=== PATIENT | male | born 1960 | race Caucasian/White ===

== ENCOUNTER 2017-11-26 09:56 | Observation (INO) | payer BC ==
[2017-11-26] MEDS ORDERED: ASPIRIN 81 MG PO STA (10:33)
[2017-11-26 10:56] LABS: Basophils # (A) 0.1 k/uL (0-0.2); Basophils % (A) 1 %; Eosinophils # (A) 0.2 k/uL (0-0.7); Eosinophils % (A) 2 %; HCT 43.9 % (39.0-53.0); HGB 15.3 gm/dL (13.0-17.5); Lymphocytes # (A) 1.5 k/uL (1.0-4.8); Lymphocytes % (A) 17 %; MCH 29.9 pg (25.0-35.0); MCV 85.5 fL (80.0-100.0); Mean Platelet Volume 8.1; Monocytes # (A) 0.6 k/uL (0-1.0); Monocytes % (A) 7 %; Neutrophils # (A) 6.4 k/uL (1.3-7.7); Neutrophils % (A) 71 %; Platelet Count 192 k/uL (150-450); RBC 5.13 m/uL (4.30-5.90); RDW 13.8 % (11.5-15.5)
[2017-11-26 10:58] LABS: Appearance,Urine Clear (Clear); Bilirubin,Urine Negative (Negative); Blood,Urine Negative (Negative); Color,Urine Yellow; Glucose,Urine (UA) Negative (Negative); Ketones,Urine Negative (Negative); Leukocyte Esterase,Urine Negative (Negative); Nitrite,Urine Negative (Negative); PH, Urine 5.5 (5.0-8.0); Protein,Urine Trace (Negative); Specific Gravity,Urine 1.013 (1.001-1.035); Urobilinogen,Urine <2.0 mg/dL (<2.0)
[2017-11-26 11:11] LABS: Albumin 4.2 g/dL (3.5-5.0); Calcium 9.7 mg/dL (8.4-10.2); Potassium 4.7 mmol/L (3.5-5.1); Total Bilirubin 0.4 mg/dL (0.2-1.3); Total Protein 7.3 g/dL (6.3-8.2)
--- NOTE | 2017-11-26 11:11 | XR ---
EXAMINATION TYPE: XR chest 2V DATE OF EXAM: 11/26/2017 COMPARISON: None HISTORY: 57-year-old male with chest pain and hypertension TECHNIQUE: PA and lateral views FINDINGS: Heart borderline to mildly enlarged. Mild elongation of the thoracic aorta. Diffuse interstitial prom inence and some peribronchial cuffing. Strandy atelectasis in the lower lungs. No consolidation or pl eural effusion. IMPRESSION: 1. Borderline to mild cardiomegaly. 2. Interstitial changes have a chronic appearance, possible bronchitis or chronic asthma. Correlate t o exclude mild pulmonary vascular congestion. No focal infiltrate.
[2017-11-26 11:17] LABS: Prothrombin Time 9.9 sec (9.0-12.0)
[2017-11-26] MEDS ORDERED: NALOXONE 0.4 MG/ML 1 ML VIAL IV PRN ×2 (11:46→16:52)
--- NOTE | 2017-11-26 11:46 | ED ---
General Adult HPI - General Chief complaint: Recheck/Abnormal Lab/Rx Stated complaint: Hypertension Time Seen by Provider: 11/26/17 10:24 Source: patient, EMS Mode of arrival: EMS - History of Present Illness Initial comments: Patient complains of tightness in the upper chest, jaw and face. His symptoms began a couple hours ago. He also noted his blood pressure was very high. He took no medication for the symptoms. He has no back pain. He has no shortness of breath, but felt diaphoretic and lightheaded. He did not black out. He has no belly pain. He has chronic swelling the legs which is unchanged from prior. He has no palpitations. He denies sick contacts or recent travel. - Related Data Home Medications Medication Instructions Recorded Confirmed Allopurinol [Zyloprim] 300 mg PO DAILY PRN 03/27/16 11/26/17 Cholecalciferol [Vitamin D3] 5,000 unit PO W/LUNCH 03/27/16 11/26/17 HYDROcodone/APAP 10-325MG [[place] 1 tab PO QAM 03/27/16 11/26/17 10-325] Indomethacin [Indocin ER] 75 mg PO DAILY 03/27/16 11/26/17 Multivitamin [Multivitamins Adult 1 tab PO W/LUNCH 03/27/16 11/26/17 Gummies] Nebivolol HCl [Bystolic] 10 mg PO HS 03/27/16 11/26/17 [place]-3 Fatty Acids/Fish Oil [Fish 1 cap PO W/LUNCH 03/27/16 11/26/17 Oil 1,000 mg Softgel] Tamsulosin [Flomax] 0.4 mg PO HS 11/26/17 11/26/17 Allergies Allergy/AdvReac Type Severity Reaction Status Date / Time Sulfa (Sulfonamide Allergy Rash/Hives Verified 11/26/17 10:18 Antibiotics) sulfamethoxazole Allergy Rash/Hives Verified 11/26/17 10:18 [From Bactrim] trimethoprim [From Bactrim] Allergy Rash/Hives Verified 11/26/17 10:18 Review of Systems ROS Statement: Those systems with pertinent positive or pertinent negative responses have been documented in the HPI. ROS Other: All systems not noted in ROS Statement are negative. Past Medical History Past Medical History: Hypertension, Osteoarthritis (OA), Skin Disorder Additional Past Medical History / Comment(s): hx. kidney stones, gout,psoriasis, knee problems History of Any Multi-Drug Resistant Organisms: None Reported Past Surgical History: No Surgical Hx Reported Additional Past Surgical History / Comment(s): hernia repair Additional Past Anesthesia/Blood Transfusion Reaction / Comment(s): never had anesthesia, no family problems Past Psychological History: No Psychological Hx Reported Smoking Status: Never smoker Past Alcohol Use History: Occasional Past Drug Use History: None Reported - Past Family History Mother Family Medical History: Cancer Brother(s) Family Medical History: Cancer General Exam General appearance: alert, in no apparent distress Head exam: Present: atraumatic, normocephalic, normal inspection Eye exam: Present: normal appearance, PERRL, EOMI. Absent: scleral icterus, conjunctival injection, periorbital swelling ENT exam: Present: normal exam, mucous membranes moist Neck exam: Present: normal inspection. Absent: tenderness, meningismus, lymphadenopathy Respiratory exam: Present: normal lung sounds bilaterally. Absent: respiratory distress, wheezes, rales, rhonchi, stridor Cardiovascular Exam: Present: regular rate, normal rhythm, normal heart sounds. Absent: systolic murmur, diastolic murmur, rubs, gallop, clicks GI/Abdominal exam: Present: soft, normal bowel sounds. Absent: distended, tenderness, guarding, rebound, rigid Extremities exam: Present: normal inspection, full ROM, normal capillary refill. Absent: tenderness, pedal edema, joint swelling, calf tenderness Back exam: Present: normal inspection Neurological exam: Present: alert, oriented X3, CN II-XII intact Psychiatric exam: Present: normal affect, normal mood Skin exam: Present: warm, dry, intact, normal color. Absent: rash Course Vital Signs 11/26/17 11/26/17 10:03 11:01 Temperature 98.5 F Pulse Rate 65 56 L Respiratory 16 18 Rate Blood Pressure 203/134 176/99 O2 Sat by Pulse 95 95 Oximetry EKG Findings - EKG Comments: EKG Findings:: Twelve-lead EKG shows ventricular rate 58 bpm, normal MO interval and QRS complexes, no ST elevation or depression, interpreted by me is sinus bradycardia. Medical Decision Making - Medical Decision Making Patient presents with tightness in the upper chest and jaw and neck. I'm concern for cardiac related problems. His laboratory studies are unremarkable. He was very hypertensive on arrival. Chest x-rays negative for pneumonia. Troponin is negative. I will place a consultation to cardiology. Patient will be admitted for observation. - Lab Data Result diagrams: 11/26/17 10:15 11/26/17 10:15 Lab Results 11/26/17 11/26/17 11/26/17 Range/Units 10:15 10:15 10:15 WBC 9.0 (3.8-10.6) k/uL RBC 5.13 (4.30-5.90) m/uL Hgb 15.3 (13.0-17.5) gm/dL Hct 43.9 (39.0-53.0) % MCV 85.5 (80.0-100.0) fL MCH 29.9 (25.0-35.0) pg MCHC 35.0 (31.0-37.0) g/dL RDW 13.8 (11.5-15.5) % Plt Count 192 (150-450) k/uL Neutrophils % 71 % Lymphocytes % 17 % Monocytes % 7 % Eosinophils % 2 % Basophils % 1 % Neutrophils # 6.4 (1.3-7.7) k/uL Lymphocytes # 1.5 (1.0-4.8) k/uL Monocytes # 0.6 (0-1.0) k/uL Eosinophils # 0.2 (0-0.7) k/uL Basophils # 0.1 (0-0.2) k/uL PT 9.9 (9.0-12.0) sec INR 1.0 (<1.2) APTT 24.0 (22.0-30.0) sec Sodium 143 (137-145) mmol/L Potassium 4.7 (3.5-5.1) mmol/L Chloride 105 (98-107) mmol/L Carbon Dioxide 23 (22-30) mmol/L Anion Gap 15 mmol/L BUN 17 (9-20) mg/dL Creatinine 1.10 (0.66-1.25) mg/dL Est GFR (CKD-EPI)AfAm 86 (>60 ml/min/1.73 sqM) Est GFR (CKD-EPI)NonAf 75 (>60 ml/min/1.73 sqM) Glucose 110 H (74-99) mg/dL Calcium 9.7 (8.4-10.2) mg/dL Magnesium 2.0 (1.6-2.3) mg/dL Total Bilirubin 0.4 (0.2-1.3) mg/dL AST 42 (17-59) U/L ALT 72 (21-72) U/L Alkaline Phosphatase 56 (38-126) U/L Troponin I (0.000-0.034) ng/mL NT-Pro-B Natriuret Pep pg/mL Total Protein 7.3 (6.3-8.2) g/dL Albumin 4.2 (3.5-5.0) g/dL Lipase 78 (23-300) U/L Urine Color Urine Appearance (Clear) Urine pH (5.0-8.0) Ur Specific [place] (1.001-1.035) Urine Protein (Negative) Urine Glucose (UA) (Negative) Urine Ketones (Negative) Urine Blood (Negative) Urine Nitrite (Negative) Urine Bilirubin (Negative) Urine Urobilinogen (<2.0) mg/dL Ur Leukocyte Esterase (Negative) 11/26/17 11/26/17 11/26/17 Range/Units 10:15 10:15 10:15 WBC (3.8-10.6) k/uL RBC (4.30-5.90) m/uL Hgb (13.0-17.5) gm/dL Hct (39.0-53.0) % MCV (80.0-100.0) fL MCH (25.0-35.0) pg MCHC (31.0-37.0) g/dL RDW (11.5-15.5) % Plt Count (150-450) k/uL Neutrophils % % Lymphocytes % % Monocytes % % Eosinophils % % Basophils % % Neutrophils # (1.3-7.7) k/uL Lymphocytes # (1.0-4.8) k/uL Monocytes # (0-1.0) k/uL Eosinophils # (0-0.7) k/uL Basophils # (0-0.2) k/uL PT (9.0-12.0) sec INR (<1.2) APTT (22.0-30.0) sec Sodium (137-145) mmol/L Potassium (3.5-5.1) mmol/L Chloride (98-107) mmol/L Carbon Dioxide (22-30) mmol/L Anion Gap mmol/L BUN (9-20) mg/dL Creatinine (0.66-1.25) mg/dL Est GFR (CKD-EPI)AfAm (>60 ml/min/1.73 sqM) Est GFR (CKD-EPI)NonAf (>60 ml/min/1.73 sqM) Glucose (74-99) mg/dL Calcium (8.4-10.2) mg/dL Magnesium (1.6-2.3) mg/dL Total Bilirubin (0.2-1.3) mg/dL AST (17-59) U/L ALT (21-72) U/L Alkaline Phosphatase (38-126) U/L Troponin I <0.012 (0.000-0.034) ng/mL NT-Pro-B Natriuret Pep 407 pg/mL Total Protein (6.3-8.2) g/dL Albumin (3.5-5.0) g/dL Lipase (23-300) U/L Urine Color Yellow Urine Appearance Clear (Clear) Urine pH 5.5 (5.0-8.0) Ur Specific [place] 1.013 (1.001-1.035) Urine Protein Trace H (Negative) Urine Glucose (UA) Negative (Negative) Urine Ketones Negative (Negative) Urine Blood Negative (Negative) Urine Nitrite Negative (Negative) Urine Bilirubin Negative (Negative) Urine Urobilinogen <2.0 (<2.0) mg/dL Ur Leukocyte Esterase Negative (Negative) Disposition Clinical Impression: Chest pain Disposition: ADMITTED IP TO THIS HOSP Condition: Fair Referrals: Alex Pierre MD [Primary Care Provider] - 1-2 days Time of Disposition: 11:46
[2017-11-26] MEDS ORDERED: ALLOPURINOL 300 MG TAB PO PRN (11:48)
--- NOTE | 2017-11-26 13:10 | ECHOF ---
Referral Reason:chest pain MEASUREMENTS -------- HEIGHT: 177.8 cm WEIGHT: 154.2 kg BP: IVSd: 1.1 cm (0.6 - 1.1) LVIDd: 5.4 cm (3.9 - 5.3) LVPWd: 1.4 cm (0.6 - 1.1) IVSs: 1.7 cm LVIDs: 3.8 cm LVPWs: 1.3 cm Ao Diam: 3.6 cm (2.0 - 3.7) AV Cusp: 2.5 cm (1.5 - 2.6) LA Diam: 4.5 cm (2.7 - 3.8) MV EXCURSION: 18.655 mm (> 18.000) MV EF SLOPE: 106 mm/s (70 - 150) EPSS: 1.3 cm MV E Leon: 0.73 m/s MV DecT: 244 ms MV A Leon: 0.42 m/s MV E/A Ratio: 1.76 RAP: 5.00 mmHg RVSP: 7.97 mmHg FINDINGS -------- Sinus rhythm. This was a technically difficult study with suboptimal views. The left ventricular size is normal. There is mild concentric left ventricular hypertrophy. Overa ll left ventricular systolic function is low-normal with, an EF between 50 - 55 %. The right ventricle is normal in size and function. The left atrium is mildly dilated. The right atrium is normal in size. Lumason used The aortic valve was not well visualized. The mitral valve was not well visualized. There is trace mitral regurgitation. The tricuspid valve was not well visualized. Trace tricuspid regurgitation present. The right darius tricular systolic pressure, as measured by Doppler, is 7.97mmHg. The pulmonic valve was not well visualized. The aortic root size is normal. The pericardium is normal. CONCLUSIONS -------- 1. Sinus rhythm. 2. This was a technically difficult study with suboptimal views. 3. The left ventricular size is normal. 4. There is mild concentric left ventricular hypertrophy. 5. Overall left ventricular systolic function is low-normal with, an EF between 50 - 55 %. 6. The right ventricle is normal in size and function. 7. The left atrium is mildly dilated. 8. The right atrium is normal in size. 9. Lumason used 10. The aortic valve was not well visualized. 11. The mitral valve was not well visualized. 12. There is trace mitral regurgitation. 13. The tricuspid valve was not well visualized. 14. Trace tricuspid regurgitation present. 15. The right ventricular systolic pressure, as measured by Doppler, is 7.97mmHg. 16. The pulmonic valve was not well visualized. 17. The aortic root size is normal. 18. The pericardium is normal. MOLD STACKER: Denisha Perez RDCS
[2017-11-26] MEDS ORDERED: NEBIVOLOL 5 MG TAB PO ONE (14:15)
[2017-11-26] MEDS ORDERED: MAGNESIUM HYDROXIDE 2,400 MG/10 ML CUP PO PRN (16:52)
[2017-11-26] MEDS ORDERED: MELATONIN 3 MG TABLET PO PRN (16:52)
[2017-11-26] MEDS ORDERED: ACETAMINOPHEN TAB 325 MG TAB PO PRN (16:52)
[2017-11-26] MEDS ORDERED: LORazepam 0.5 MG TAB PO PRN (16:52)
[2017-11-26] MEDS ORDERED: ONDANSETRON 4 MG/2 ML VIAL IVP PRN (16:52)
[2017-11-26] MEDS ORDERED: CALCIUM CARBONATE 500 MG CHEWABLE PO PRN (16:52)
[2017-11-26] MEDS ORDERED: LACTULOSE 20 GM/30 ML CUP PO PRN (16:52)
[2017-11-26] MEDS: LISINOPRIL-HCTZ 10-12.5 MG 1 EACH TAB PO SCH ×2 (17:16→19:53)
[2017-11-26] MEDS: FAMOTIDINE 20 MG TAB PO SCH (19:52)
[2017-11-26] MEDS ORDERED: NEBIVOLOL 5 MG TAB PO SCH (21:00)
[2017-11-26] MEDS ORDERED: TAMSULOSIN 0.4 MG CAP.ER.24H PO SCH (21:00)
--- NOTE | 2017-11-26 21:02 | HP ---
HISTORY AND PHYSICAL DATE OF ADMISSION: 11/26/2017 PRESENTING COMPLAINT: Not feeling well. HISTORY OF PRESENTING COMPLAINT: This is a pleasant 57-year-old patient of Dr. Pierre. Chronic stable medical conditions include osteoarthritis, psoriasis, obesity. The patient 2 days ago had an episode as described below, short-lived. This morning patient went to work and felt a little bit short of breath, flushed, broke out in a sweat. He continued to do his work. After an hour he started feeling much worse and went down to the office. From there he was taken to the local fire department, and they decided to transfer the patient to the hospital, as his blood pressure was running rather high. The patient felt a bit tired and rundown. The patient does have a positive family history of coronary artery disease with no prior cardiac history himself. Patient's blood pressure was running rather high when he first presented. REVIEW OF SYSTEMS: CONSTITUTIONAL: Tired. HEENT: None. RESPIRATORY: As above. CARDIOVASCULAR: As above. GASTROINTESTINAL: None. GENITOURINARY: None. MUSCULOSKELETAL: Arthritic pain in many joints, especially in the knees. DERMATOLOGICAL: Some chronic skin changes in lower extremities. HEMATOLOGICAL: None. LYMPHATICS: None. PSYCHIATRY: None. NEUROLOGICAL: None. PAST MEDICAL HISTORY: 1. Hypertension. 2. Osteoarthritis. 3. Varicose veins. 4. Psoriasis. 5. Basal cell skin cancer. PAST SURGICAL HISTORY: 1. Hernia repair. 2. Laparoscopic ventral hernia repair. 3. Ablation of the varicose veins. 4. Basal cell cancer removed. 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 . Does not smoke. Alcohol occasionally. FAMILY HISTORY: Father had heart disease starting in his 50s, including a bypass, and lymphoma. HOME MEDICATIONS: 1. Flomax 0.4 mg at bedtime. 2. Fish oil 1 capsule p.o. with lunch. 3. Nebivolol 10 mg at bedtime. 4. Multivitamin 1 tablet p.o. daily. 5. Indocin ER 25 mg daily. 6. [place] 10 one tablet daily. 7. Vitamin D3 5000 units p.o. with lunch. 8. Allopurinol 300 mg daily p.r.n. ALLERGIES: BACTRIM. PHYSICAL EXAMINATION: VITAL SIGNS ON PRESENTATION: Temperature 98.5, pulse 65, respiration 16, blood pressure 203/134, pulse ox 95% on 2 L. GENERAL APPEARANCE: Morbidly obese; BMI of 53.1. Sitting at the edge of bed, comfortable. EYES: Pupils equal. Conjunctivae normal. HEENT: External appearance of nose and ears normal. Oral cavity normal. NECK: JVD not raised. Mass not palpable. RESPIRATORY: Effort normal. LUNGS: Fair air entry. CARDIOVASCULAR: First and second sounds normal. No edema. ABDOMEN: Soft, nontender. Liver and spleen not palpable. LYMPHATIC: No lymph node palpable in neck or axillae. PSYCHIATRY: Alert and oriented x3. Mood and affect normal. DERMATOLOGICAL: Patient has evidence of psoriasis both on his elbows and the knees and there is also pigmentation in the lower extremity, probably from varicose veins. INVESTIGATIONS: White count 9, hemoglobin 15.3, potassium 4.7. Troponin x2 negative. EKG normal sinus rhythm. ASSESSMENT: 1. This is a 57-year-old patient whose cardiac risk factors include morbid obesity, hypertension, positive coronary artery disease. He presented with a cardiac- sounding presentation. Patient's troponins are negative. EKG is nonspecific. Probably he will need at least a stress test. 2. Essential hypertension with urgency. 3. Primary osteoarthritis, especially in the knees. 4. Psoriasis not otherwise specified. 5. Morbid obesity with body mass index of 53.1. PLAN: Patient is started on aspirin. Serial cardiac enzymes are done. Cardiology will be consulted with a view to probably a stress test. LEIDY inhibitors were added. Care was discussed with the patient. Will also have the patient see a dietitian for weight loss measures. MMODL / IJN: [id number] /
--- NOTE | 2017-11-26 22:32 | CONS ---
CONSULTATION This is a 57-year-old obese hypertensive patient who works for the [employer]. He has a diagnosis of hypertension, benign prostatic hypertrophy, has had some varicose vein surgery performed in the past. He is a reasonably active person, but yesterday while at work doing some heavy activity, he felt dizzy, lightheaded and just did not feel right. He specifically insists that he did not have any chest pain or discomfort. He went to the [facility], and there they took his blood pressure and found that it was elevated and suggested that he should come into the hospital. After arrival in the hospital, his blood pressure was initially elevated and he received Zestril in addition to his Bystolic that he was given already, and with that he has shown improvement. He has virtually no symptoms. His two sets of troponins are normal. He is resting comfortably without symptoms at the time of my evaluation. On arrival in the emergency room, his blood pressure was 200/120. It appears that this was a combination of accelerated hypertension and lightheadedness that brought him to the hospital. The patient is quite obese but also quite active. He is resting comfortably without symptoms at the time of my evaluation. He has virtually no discomfort. PAST MEDICAL HISTORY: 1. Hypertension. 2. Osteoarthritis. 3. Chronic lower extremity edema with stripping of veins. 4. History of kidney stones. 5. Psoriasis. 6. He has also had some hernia surgery in the past. MEDICATIONS AT HOME: 1. Indocin. 2. Bystolic 10 mg daily. 3. Flomax 0.4 mg daily. 4. Zyloprim. 5. Vitamin supplements. 6. Pain medications. ALLERGIES: SULFA. PHYSICAL EXAMINATION: His blood pressure now is down to 128/70, pulse rate 60 per minute, regular. HEENT: Unremarkable. Fundus was not examined by me. Neck is supple. There is no JVD. I do not hear a carotid bruit. Heart exam reveals S1, S2 heard normally. Distant heart sounds. No murmurs. Lungs are clear. Abdomen is soft, nontender. Lower extremities reveal bilateral venostasis pigmentation with trace edema, diminished pulses. Central nervous system is grossly within normal limits. IMPRESSION: 1. Accelerated hypertension with some lightheadedness, which has resolved. 2. Obesity. 3. History of bilateral lower extremity venous insufficiency. RECOMMENDATIONS: Patient's blood pressure control seems somewhat suboptimal. His heart rate is already low, so I will continue Bystolic, but I will add lisinopril 10 mg daily to his regimen. If he has no further symptoms, we can discharge him tomorrow with the understanding he should have an outpatient stress test performed. I discussed my thoughts in detail with the patient. Thank you very much for the consult. SAMANTHA / AIME: [id number] /
[2017-11-27 08:03] LABS: Mean Platelet Volume 7.7; Platelet Count 200 k/uL (150-450)
[2017-11-27] MEDS: FAMOTIDINE 20 MG TAB PO SCH (08:35)
[2017-11-27 08:36] LABS: Calcium 9.1 mg/dL (8.4-10.2)
[2017-11-27 08:37] LABS: Potassium 4.7 mmol/L (3.5-5.1)
[2017-11-27] MEDS ORDERED: HEPARIN SODIUM,PORCINE 5,000 UNIT/ML 1 ML VIAL SQ SCH (09:00)
[2017-11-27] MEDS ORDERED: INDOMETHACIN 75 MG PO SCH (09:00)
[2017-11-27] MEDS ORDERED: LISINOPRIL-HCTZ 10-12.5 MG 1 EACH TAB PO SCH (09:00)
[2017-11-27] MEDS ORDERED: ASPIRIN 81 MG PO SCH (09:00)
[2017-11-27] MEDS ORDERED: HYDROcodone/APAP 10-325MG 1 EACH TAB PO SCH (09:00)
[2017-11-27] MEDS ORDERED: NEBIVOLOL 5 MG TAB PO SCH (09:00)
[2017-11-27 09:41] VITALS: RESP 18
[2017-11-27 10:49] VITALS: BMI 53.1
[2017-11-27 11:58] VITALS: BP 163/91; PULSE 50; TEMP 97.7
--- NOTE | 2017-11-27 20:36 | PN ---
PROGRESS NOTE Mr. Laughlin is an obese gentleman with hypertension who came into the hospital yesterday with dizziness and lightheadedness. Accelerated hypertension has resolved. His blood pressure is under good control today. Blood pressure was 140/70. S1-S2 heard normally. Lungs are clear. Heart sounds heard distantly. Abdomen is soft, nontender. Lower extremities reveal pigmentation and bilateral mild edema. Central nervous system is grossly within normal limits. I am recommending that he should be discharged on both lisinopril and the beta jorge that he is on and he will follow up with me in the office in a week and we will perform a stress test as an outpatient. Echocardiogram revealed preserved systolic function. This was discussed with the patient. MMODL / IJN: [id number] /
[2017-11-27] MEDS ORDERED: LISINOPRIL 10 MG TAB PO SCH (21:00)
--- NOTE | 2017-11-28 09:07 | DS ---
DISCHARGE SUMMARY DATE OF ADMISSION: 11/26/2017 DATE OF DISCHARGE: 11/27/2017 FINAL DIAGNOSES: 1. Essential hypertension with urgency. 2. Primary osteoarthritis, especially in the knees. 3. Psoriasis, not otherwise specified. 4. Morbid obesity, body mass index 53.1. 5. Anterior chest wall pain, could be angina. HOSPITAL COURSE: This patient presented with uncontrolled blood pressure and some chest discomfort. Seen by Dr. Sonia Lopez. The patient's troponins were negative. The 2-D echocardiogram did not show any wall motion abnormality, EF is 50% to 55%. The patient will be getting a stress test as an outpatient. No further chest pain. Blood pressure was 163/91 prior to discharge. PHYSICAL EXAMINATION: Lungs are clear. CARDIOVASCULAR: First and second sounds normal. DISCHARGE MEDICATIONS: 1. Allopurinol 300 mg a day. 2. Vitamin D3, 5000 units p.o. with lunch. 3. [place] 10 one tab in the morning. 4. Indocin ER 75 mg a day. 5. Multivitamin Gummies 1 tablet with lunch. 6. Bystolic 10 mg q.h.s. 7. Fish oil 1 capsule p.o. with lunch. 8. Flomax 0.4 mg q.h.s. 9. Aspirin 81 mg a day. 10.Zestoretic 06/12.5 one tablet p.o. daily. 11.Prilosec 10 mg p.o. daily. Follow up with Dr. Sonia Lopez on 12/05/17. Follow up with Dr. Arun Pierre in 1 week. MMODL / IJN: [id number] /
== END 2017-11-27 13:49 | disposition home or self-care (01) ==
LOC: EC 09:56 → 3OBS 11:46
PROVIDERS: ADMIT Hospitalist; ATTEND Hospitalist
DX: R07.89 Other chest pain (principal); I16.0 Hypertensive urgency; I10 Essential (primary) hypertension; M10.9 Gout, unspecified; I87.2 Venous insufficiency (chronic) (peripheral); I83.90 Asymptomatic varicose veins of unspecified lower extremity; N40.0 Benign prostatic hyperplasia without lower urinary tract symptoms; L40.9 Psoriasis, unspecified; E66.01 Morbid (severe) obesity due to excess calories; Z68.43 Body mass index [BMI] 50.0-59.9, adult; M17.0 Bilateral primary osteoarthritis of knee; Z79.1 Long term (current) use of non-steroidal anti-inflammatories (NSAID); Z79.891 Long term (current) use of opiate analgesic; Z79.899 Other long term (current) drug therapy; Z88.1 Allergy status to other antibiotic agents; Z88.2 Allergy status to sulfonamides; Z85.828 Personal history of other malignant neoplasm of skin; Z87.442 Personal history of urinary calculi; Z82.49 Family history of ischemic heart disease and other diseases of the circulatory system; Z80.9 Family history of malignant neoplasm, unspecified; Z80.7 Family history of other malignant neoplasms of lymphoid, hematopoietic and related tissues
CPT/HCPCS: 99285 ×2; 96372; 36415; 93005; 93306; 83880; 80053; 80048; 83690; 83735; 84484; 85025; 85049; 85610; 85730; 81003; 71046; G0378 ×2; J1644; Q9950

== ENCOUNTER → 2019-04-01 | Outpatient (CLI) | payer BC | END | disposition home or self-care (01) | LOC: RADMRIMAIN 16:37 | PROVIDERS: ATTEND Orthopaedic Surgery | DX: Z53.9 Procedure and treatment not carried out, unspecified reason (principal) ==